=== PATIENT | male | born 1985 | race Caucasian/White ===

== ENCOUNTER 2016-07-04 17:37 | Emergency (ER) | payer BC ==
[~2016-07-04] VITALS: Ht 182.9 cm; Wt 103.4 kg
[2016-07-04 17:43] VITALS: TEMP 36.8; Ht 182.9 cm; Wt 103.4 kg
[2016-07-04] MEDS ORDERED: BUPR8SUB19 SL (18:14)
--- NOTE | 2016-07-04 18:54 | DIAGNOSTIC IMAGING REPORT ---
RIGHT TIBIA/FIBULA 2 VIEWS ROUTINE CLINICAL HISTORY: Right lower leg pain. Change solid injury. COMPARISON: None DISCUSSION: No fractures are visualized. No radiopaque foreign bodies are evident. There is anterior soft tissue edema. IMPRESSION: Soft tissue edema. No foreign bodies identified. No evidence of fracture. Electronically signed by: Hari Wilson M.D. 07/04/2016 6:52 PM Dictated Date/Time: 07/04/2016 6:51 PM
--- NOTE | 2016-07-04 19:10 | EMERGENCY ROOM VISIT NOTE ---
History Report prepared by Fredo: Melonie Alvarado Under the Supervision of: Dr. John Hayden D.O. First contact with patient: 17:47 Chief Complaint: LEG PAIN,LEG INJURY Stated Complaint: RIGHT CUT LEG W/CHAIN SAW INFECTED, BONE PAIN History of Present Illness The patient is a 31 year old male who presents to the Emergency Room with complaints of persistent right leg pain starting 9 days ago. He cut his leg with a chainsaw 9 days ago. 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 He states that about 10 hours later, he went to the Emergency Room at [facility]. They cleaned out the wound, gave him IV antibiotics, cleaned the wound, and sent him home on Keflex. Since then, he continues to complain of right leg discomfort and wanted to ensure that it was not infected. He was evaluated by his PCP today who gave him prescription for Clindamycin and Bactrim which he has filled. He was told that a complete rule out of infection could not be completed at the PCP's office and he was referred to the Emergency Room. He denies any fevers, nausea, vomiting, weakness, or any other complaints. Source of History: patient Onset: 9 days ago Position: leg (right) Timing: other (persistent) Modifying Factors (Relieving): other (Keflex) Associated Symptoms: No fevers, No nausea, No vomiting, No weakness Review of Systems See HPI for pertinent positives & negatives. A total of 10 systems reviewed and were otherwise negative. Past Medical & Surgical Medical Problems: (1) No Known Active Medical Problems Family History Patient reports no known family medical history. Social History Smoking Status: Never Smoker Marital Status: single Occupation Status: employed Current/Historical Medications Scheduled Buprenorphine Hcl (Subutex), 8 MG SL BID Allergies Coded Allergies: No Known Allergies (Unverified , 07/04/16) Physical Exam Vital Signs Date Time Temp Pulse Resp B/P Pulse Ox O2 Delivery O2 Flow Rate FiO2 07/04/16 17:43 36.8 73 18 174/101 99 Room Air Physical Exam CONSTITUTIONAL/VITAL SIGNS: Reviewed / noted above. GENERAL: Non-toxic in appearance. INTEGUMENTARY: Warm, dry, and [place]. HEAD: Normocephalic. EYES: without scleral icterus or trauma. ENT/OROPHARYNX: clear and moist. LYMPHADENOPATHY/NECK: Is supple without lymphadenopathy or meningismus. RESPIRATORY: Lungs clear and equal. CARDIOVASCULAR: Regular rate and rhythm. GI/ABDOMEN: Soft and nontender. No organomegaly or pulsatile mass. No rebound or guarding. Normal bowel sounds. EXTREMITIES: Warm and well perfused. 6 cm healing laceration to the right anterior tibial region with [address] There is mild erythema immediately surrounding the wound. There is no discharge expressible from the wound/ no palpable fluctuance, no significant tenderness, no red streaks going up the right leg, no calf tenderness. BACK: No CVA tenderness. NEUROLOGICAL: Intact without focal deficits. PSYCHIATRIC: normal affect. MUSCULOSKELETAL: Normally developed with good muscle tone. Medical Decision & Procedures ER Provider Diagnostic Interpretation: X ray results and stated below per my interpretation and radiology interpretation. RIGHT TIBIA/FIBULA 2 VIEWS ROUTINE CLINICAL HISTORY: Right lower leg pain. Change solid injury. COMPARISON: None DISCUSSION: No fractures are visualized. No radiopaque foreign bodies are evident. There is anterior soft tissue edema. IMPRESSION: Soft tissue edema. No foreign bodies identified. No evidence of fracture. Electronically signed by: Hari Wilson M.D. 07/04/2016 6:52 PM Dictated Date/Time: 07/04/2016 6:51 PM ED Course 1747: Previous medical records were reviewed. The patient was evaluated in room B08. A complete history and physical examination was performed. 1900: On reevaluation, the patient is resting comfortably. I discussed the results and findings with the patient. He verbalized agreement of the treatment plan. He was discharged home. Medical Decision Differential diagnosis includes but is not limited to healing wound, cellulitis , abscess, osteomyelitis, lymphangitis. Is a 31-year-old male who presents to the ED with a chief complaint of right leg pain. Details listed above. The patient's exam reveals a healing leg wound. There is no evidence of acute infection. There is some localized reactive changes around the wound that are slightly erythematous but I do not suspect acute infection. There is nothing to suggest a palpable fluid collection or discharge from the wound. The patient had an x-ray of the right leg did not show any acute abnormality. I do not suspect acute infection or abscess. The patient is felt to be stable for discharge. He does have a prescription for clindamycin and Bactrim as prescribed by his PCP. Impression Primary Impression: Leg pain Additional Impression: Encounter for evaluation of wound Scribe Attestation The scribe's documentation has been prepared under my direction and personally reviewed by me in its entirety. I confirm that the note above accurately reflects all work, treatment, procedures, and medical decision making performed by me. Departure Information Dispostion Home / Self-Care Referrals Sebas Diaz M.D. (PCP) Forms HOME CARE DOCUMENTATION FORM, IMPORTANT VISIT INFORMATION Patient Instructions My [facility] Additional Instructions Instructions as discussed. Watch for infection. Problem Qualifiers
[2016-07-04 19:24] VITALS: BP 143/74; PULSE 60; O2SAT 97
== END 2016-07-04 19:25 | disposition home or self-care (01) ==
LOC: C.EDB 17:40
DX: M79.604 Pain in right leg (principal); S81.811D Laceration without foreign body, right lower leg, subsequent encounter; W29.3XXD Contact with powered garden and outdoor hand tools and machinery, subsequent encounter; Z79.2 Long term (current) use of antibiotics